=== PATIENT | male | born 2000 | race Caucasian/White ===

== ENCOUNTER 2025-05-15 13:15 | Emergency (ER) | payer OTHER, SELFPAY ==
[2025-05-15 13:16] VITALS: BP 123/69; PULSE 69; RESP 18; TEMP 36.8; O2SAT 100; BMI 21.7
--- NOTE | 2025-05-15 14:02 | US_ITS ---
PROCEDURE: EXT NON VASC LIMITED/SOFT TISS 05/15/2025 REASON FOR EXAM: RULE OUT ABSCESS TECHNIQUE: EXT NON VASC LIMITED/SOFT TISS COMPARISON: None. FINDINGS: Ultrasound evaluation of the right lateral hip was performed, in the patient's area of palpable lump. There is an area of increased subcutaneous echogenicity within the right lateral hip, measuring approximately 6.9 x 1.4 cm. No focal area of hypoechogenicity to suggest abscess. US/Ext Non Vasc Limited/Soft Tiss IMPRESSION: Ultrasound findings most compatible with cellulitis. No obvious abscess. Reading Location: [id number]
--- NOTE | 2025-05-15 14:04 | EX.ED.DYSGE1 ---
HPI History of Present Illness Chief Complaint: Cellulitis Narrative Narrative: Patient is a 25-year-old male presenting emergency department for concern of cellulitis. Patient states that a few days ago he noticed some redness to his right upper groin near his hip bone. States that it is painful to the touch. He does not remember any trauma or injury to the area. States this happened once before. Does not think he has a history of MRSA. Is an IV drug user. Denies any fever, chills, nausea, vomiting, fatigue. [facility] Medical History Cellulitis Home Medications ?Medication ?Instructions ?Recorded ?Last Taken ?Type cephalexin 500 mg capsule 500 mg PO Q6 7 days #28 CAPSULES 05/15/25 Unknown Rx Allergy/AdvReac Type Severity Reaction Status Date / Time No Known Allergies Allergy Verified 05/15/25 13:17 Social History Smoking Status: Never smoker ROS ROS ED ROS Narrative see HPI EXAM Physical Exam Narrative Exam Narrative: Vital signs: Reviewed General: Alert and oriented. No acute distress HEENT: Head is normocephalic and atraumatic, sinuses nontender, pupils equal round and reactive. Nares are patent. Oropharynx and throat exams normal. Neck: Supple without lymphadenopathy nontender Cardiovascular: Regular rate and rhythm, no murmurs. No rubs or gallops. Normal S1 and S2 Respiratory: Clear to auscultation bilaterally. No wheezes, rales, rhonchi Abdominal: Soft and nontender. Normal bowel sounds. No guarding or rebound. Nonsurgical abdomen Extremities: No tenderness. No bruising. Normal range of motion. Normal sensation. Skin: 4-5 cm area of erythema to the right lower abdomen/upper groin. No fluctuance noted. No drainage. Able to range hip with no pain. Neurological: Cranial nerves II through XII are grossly intact. Normal strength and sensation. Normal cerebellar function The rest of the physical exam is unremarkable Const Vital Signs: 05/15/25 13:16 05/15/25 13:16 05/15/25 15:17 Temperature 98.3 F 98.3 F Temperature Source Oral Oral Pulse Rate 69 69 67 Respiratory Rate 18 18 18 Blood Pressure 123/69 H 123/69 H 113/67 Blood Pressure Mean 87 87 82 Pulse Ox 100 100 100 Oxygen Delivery Method Room Air Room Air Room Air MDM MDM MDM Narrative Medical decision making narrative: Patient is a 25-year-old male presenting to emergency department for a skin infection. Patient was seen and examined. Vitals are stable. Patient resting bed comfortably no acute distress. Given first dose of antibiotics here. Also given analgesia. Ultrasound was ordered to rule out an abscess. Ultrasound shows findings most compatible with cellulitis, no obvious abscess. Patient appears well and has no history concerning for sepsis. No history of MRSA. Will place patient on Keflex for home. Given primary care follow-up. Patient discharged from the Emergency Department. I do not feel that the patient's evaluation reveals any acute reason for admission at this time. I instructed them to either follow-up with their primary care physician or promptly return to the Emergency Department for reevaluation should symptoms worsen or new symptoms develop. I explained what symptoms would indicate the need to return to the emergency department. Shared decision making was used. The patient voiced understanding of the treatment plan and is agreeable with it. History & Record Review Discussion w/independent historian: Patient and Significant other Radiography Diagnostic Testing: Clinical Impression(s) from Imaging Studies Soft Tissue Ultrasound 05/15/25 14:02 IMPRESSION: Ultrasound findings most compatible with cellulitis. No obvious abscess. Reading Location: [facility] Discharge Plan Triage Chief Complaint: Cellulitis ED Provider: Eli Costello Dx/Rx/DC Orders Instructions: Cellulitis Dc Prescriptions: New cephalexin 500 mg capsule 500 mg PO Q6 7 Days Qty: 28 0RF Primary Care Provider: Care Physician,No Primary Referrals: Lucia Sherwood MD [Med Staff - Plate Stacker] - 2 Days for wound check Care Physician,No Primary [Primary Care Provider] - Activity Restrictions/Additional Instructions: Your evaluation in the Emergency Department did not reveal any acute reason for admission. However, I want to emphasize that you may be early in the course of a disease process or illness even if it is not present. For this reason you should follow-up within 24 hours for reevaluation with either your primary care physician or if necessary back here in the Emergency Department. You should return to the Emergency Department immediately if your symptoms worsen or new symptoms develop. Please take the antibiotic 4 times a day, every 6 hours, for 7 days. Follow-up with the primary care doctor below is soon as possible. Return to the ED with any new or worsening symptoms including fever, chills, vomiting, worsening or expanding redness of the wound. Print Language: [place]ian Disposition Disposition: Home, Self Care Discharge Date/Time: 05/15/25 17:20
[2025-05-15 15:17] VITALS: BP 113/67; PULSE 67; RESP 18; O2SAT 100
[2025-05-15 17:19] VITALS: BP 116/74; PULSE 72; RESP 16; TEMP 36.7; O2SAT 100
== END 2025-05-15 17:20 | disposition home or self-care (01) ==
PROVIDERS: Emergency Provider Student in an Organized Health Care Education/Training Program; Referring Provider Student in an Organized Health Care Education/Training Program; Visit Provider Student in an Organized Health Care Education/Training Program
DX: L03.314 Cellulitis of groin (principal)
CPT/HCPCS: 76882; 99282